=== PATIENT | male | born 1990 | race Caucasian/White ===

== ENCOUNTER 2020-10-25 09:48 | Emergency (ER) | payer OTHER, SELFPAY ==
[2020-10-25 09:55] VITALS: BP 147/78; PULSE 79; RESP 16; TEMP 36.8; O2SAT 99; BMI 42.4
--- NOTE | 2020-10-25 10:00 | ED.GIBLEED ---
HPI - GI Bleed General Chief complaint: Abdominal Pain Stated complaint: blood in stool Time Seen by Provider: 10/25/20 09:59 Source: patient Mode of arrival: ambulatory Limitations: no limitations History of Present Illness HPI Narrative: 30 yo male otherwise healthy no AC or NSAID use, no PPI of H2 priscilla use comes in with c/o intermittent for weeks 3 to 4 black stools a week, told to come to ED by doctor, father and brother have hx of ulcers, has not seen GI doctor in past, no dizziness, very mild epigastric discomfort, does not take pepto bismol complaint: melena Onset (ago): week(s) Pain Consistency: intermittent Severity: mild Relieving factors: none Exacerbating factors: none Associated symptoms: abdominal pain Treatments Prior to Arrival: none Related Data Home Medications Medication Instructions Recorded Confirmed clonidine HCl 0.1 mg tablet 0.1 mg PO QID PRN 08/05/20 08/07/20 risperidone 1 mg tablet 0.5 mg PO BEDTIME tab 08/07/20 08/07/20 Previous Rx's Medication Instructions Recorded sulfamethoxazole 800 1 tab PO BID 10 Days #20 tab 08/05/20 mg-trimethoprim 160 mg tablet omeprazole 20 mg PO BID 14 Days #28 cap 10/25/20 Allergies Allergy/AdvReac Type Severity Reaction Status Date / Time Penicillins [PENICILLINS] Allergy Unknown REACTION Verified 08/07/20 06:29 A CHILD Review of Systems Review of Systems: Constitutional : No Weight loss, No Fever, No Chills ENT/Mouth : No sore throat, No Rhinorrhea Eyes: No Swelling, No Redness Cardiovascular : No Chest Pain, No SOB, NoEdema Respiratory : No Cough, No Sputum, No Wheezing Gastrointestinal : no Nausea, no Vomiting, no Diarrhea, positive abdominal Pain, No Hematochezia, pos Melena Genitourinary : No Dysuria, No Urinary Frequency, No Hematuria, No Urgency Musculoskeletal : No joint pain, No Myalgias, No Joint Swelling Skin : No Skin Lesions, No rash Neuro : No Weakness, No Numbness, No Dizziness, No Headache Psych : No Anxiety/Panic, No Depression Heme/Lymph: No Bruising, No Lymphadenopathy Endocrine : No Polyuria, No Polydipsia All other systems reviewed and are negative. [facility] Past Medical History Attestation statement: The following information was validated with the patient. Medical History Anxiety Depression Surgical History No significant past surgical history Family History Family History Father Hypertension Hypercholesterolemia Crohn's disease Mother Anemia Leukemia Brother Crohn's disease Maternal Grandmother Breast cancer Paternal Uncle Pancreatic cancer Social History Social History Alcohol intake: never Smoking Status: Former smoker Tobacco Type: Cigarette Advance Directives: No Advance Directives Information Provided: No Physical Exam Vital Signs: Vital Signs: Last Vital Signs Temp 98.2 F 10/25/20 09:55 Pulse 79 10/25/20 09:55 Resp 16 10/25/20 09:55 BP 147/78 H 10/25/20 09:55 Pulse Ox 99 10/25/20 09:55 Body Mass Index 42.4 Appearance: Alert. Oriented X3. No acute distress. Eyes: Pupils equal, round and reactive to light. ENT: Pharynx normal. Neck: Normal inspection. Neck supple. CVS: Normal heart rate and rhythm. Pulses normal. Respiratory: No respiratory distress. Breath sounds normal. Abdomen: Soft and non-tender. Rectal: brown stool nonthrombosed non bleeding ext hemorroids Skin: Skin warm and dry. Normal skin color. Normal skin turgor. Extremities: No lower extremity edema. No calf ttp Neuro: Oriented X 3. No motor deficit. No sensory deficit. Course Course Course Narrative: VS and lab work stable MDM - GI Bleed MDM Narrative Medical decision making narrative: 30 yo male no AC therapy, no NSAIDs here with a few weeks of intermittent dark stools - family hx of ulcers, denies endoscopy, no OTC antacids or pepto bismol, no dizziness/CP/SOB - abdomen is benign at this time suspect PUD - will start on PPI BID and refer to PCP and GI Discharge Plan Discharge Clinical Impression: Peptic ulcer disease GIB (gastrointestinal bleeding) Qualifiers: GI bleed type/associated pathology: melena Qualified Code(s): K92.1 - Melena Patient Disposition: Home, Self-Care Instructions: Peptic Ulcer (ED), Gastrointestinal Bleeding (ED) Additional Instructions: return to ED for any worsening symptoms or concerns NO ASPIRIN, MOTRIN, ALEVE, IBUPROFEN, NAPROSYN, NAPROXEN Prescriptions: New omeprazole 20 mg capsule,delayed release(DR/EC) 20 mg PO BID 14 Days Qty: 28 RF: 0 No Action clonidine HCl 0.1 mg tablet 0.1 mg PO QID PRN (Reason: anxiety) RF: 0 sulfamethoxazole-trimethoprim [Bactrim DS] 800-160 mg tablet 1 tab PO BID 10 Days Qty: 20 RF: 0 risperidone 1 mg tablet 0.5 mg PO BEDTIME RF: 0 Referrals: Robert Berumen MD [Primary Care Provider] - 2 days (GI referral) Stand Alone Forms: Work/School Release
[2020-10-25 10:17] LABS: MANUAL DIFF FLAG NO
[2020-10-25 10:19] LABS: Basophils Percent Auto 0.5 % (0-2); Eosinophils Absolute Auto 0.1 X10*3/uL (0.0-0.4); Eosinophils Percent Auto 1.4 % (0-4); Hematocrit 44.4 % (42-52); Hemoglobin 14.6 g/dl (14.0-18.0); Imm Gran Abs Auto 0.02 X10*3/uL (0.00-0.03); Imm Gran Pct Auto 0.3 % (0.0-0.4); Lymphocytes Absolute Auto 1.8 X10*3/uL (1.2-4.9); Lymphocytes Percent Auto 31.1 % (20-40); Mean Corpuscular HGB Conc 32.9 g/dl (31.0-36.0); Mean Corpuscular Hemoglobin 26.7 pg (27.0-33.0); Mean Corpuscular Volume 81.3 fL (80-98); Mean Platelet Volume 10.1 fL (9.4-12.4); Monocytes Absolute Auto 0.3 X10*3/uL (0.1-1.2); Monocytes Percent Auto 5.8 % (2-11); Neutrophils Absolute Auto 3.6 X10*3/uL (2.0-8.3); Neutrophils Percent Auto 60.9 % (45-73); Platelet Count 233 X10*3/uL (160-400); Red Blood Count 5.46 X10*6/uL (4.60-5.80); Red Cell Distribution Width 12.4 % (11.0-16.0); White Blood Count 5.9 X10*3/uL (4.8-10.8)
[2020-10-25 10:24] LABS: OBS Int Ctl Valid YES; OBS1 NEGATIVE (NEGATIVE)
[2020-10-25 10:28] LABS: Prothrombin Time 11.9 SEC (10.8-13.0)
[2020-10-25 10:31] LABS: Partial Thromboplastin Time 34.3 SEC (24.1-38.0)
[2020-10-25 10:42] LABS: Alanine Aminotransferase 79 U/L (0-40); Albumin Level 4.6 g/dL (3.5-5.0); Alkaline Phosphatase 44 U/L (39-117); Anion Gap 14 (12-20); Aspartate Amino Transferase 40 U/L (5-37); Bilirubin Direct 0.2 mg/dL (0.0-0.5); Bilirubin Total 0.4 mg/dL (0.0-1.0); Blood Urea Nitrogen 16 mg/dL (9-16); Calcium 9.7 mg/dL (8.4-10.2); Carbon Dioxide 26 mmol/L (22-29); Chloride 105 mmol/L (96-108); Estimated Glomerular Filt Rate > 60; Glucose Random 99 mg/dL (60-115); Lipase 21 U/L (8-78); Potassium 4.1 mmol/L (3.3-5.1); Sodium 141 mmol/L (135-145); Total Protein 7.6 g/dL (6.5-8.0)
== END 2020-10-25 11:06 | disposition home or self-care (01) ==
PROVIDERS: Emergency Provider Emergency Medicine; PCP Internal Medicine
DX: K92.1 Melena (principal); F17.210 Nicotine dependence, cigarettes, uncomplicated
CPT/HCPCS: 36415; 80048; 80076; 82272; 83690; 83735; 85025; 85610; 85730; 99283

== ENCOUNTER 2020-12-09 08:19 | Outpatient (REF) | payer OTHER, SELFPAY ==
[2020-12-09 11:47] LABS: C Reactive Protein 0.42 mg/dL (< or = 0.50)
[2020-12-12 03:31] LABS: HIV AB/AG Nonreactive (Nonreactive); HIV Num 1 0.08 S/CO (0.00-0.99)
[2020-12-12 15:52] LABS: Mitochondrial Antibodies NEGATIVE (NEGATIVE)
[2020-12-13 21:47] LABS: Ceruloplasmin 25 mg/dL (18-36)
[2020-12-14 22:26] LABS: Smooth Muscle Antibody <20 U (<20)
== END 2020-12-09 08:20 | disposition home or self-care (01) ==
LOC: HO.LAB 08:19
PROVIDERS: PCP Internal Medicine; Referring Provider Internal Medicine; Visit Provider Nurse Practitioner Family
DX: R79.89 Other specified abnormal findings of blood chemistry (principal); K21.9 Gastro-esophageal reflux disease without esophagitis; K92.1 Melena; K64.9 Unspecified hemorrhoids; Z83.79 Family history of other diseases of the digestive system; Z11.0 Encounter for screening for intestinal infectious diseases
CPT/HCPCS: 36415; 82390; 86140; 86255; 86256; 87338; 87389

== ENCOUNTER 2020-12-27 13:26 | Outpatient (REF) | payer OTHER, SELFPAY ==
[2020-12-27 14:41] LABS: Hematocrit 42.5 % (42-52); Hemoglobin 13.9 g/dl (14.0-18.0); Mean Corpuscular HGB Conc 32.7 g/dl (31.0-36.0); Mean Corpuscular Hemoglobin 26.2 pg (27.0-33.0); Mean Corpuscular Volume 80.2 fL (80-98); Mean Platelet Volume 10.1 fL (9.4-12.4); Platelet Count 238 X10*3/uL (160-400); Red Cell Distribution Width 12.8 % (11.0-16.0); White Blood Count 5.8 X10*3/uL (4.8-10.8)
[2020-12-28 08:31] LABS: HBS Num1 > 1000.00 mIU/mL (0-7.99); HBc Num1 0.12 S/CO (0.00-0.79); HBsAGNum1 0.21 S/CO (0.00-0.99); Hepatitis A Antibody IgM 0.25 Index (0-0.79); Hepatitis B Core Antibody Nonreactive (Nonreactive); Hepatitis B Surface Antigen Negative (Negative); ~Hepatitis A Antibody IgM Nonreactive (Nonreactive); ~Hepatitis B Surface Antibody REACTIVE (Nonreactive)
[2020-12-28 08:43] LABS: ~HepC Num1 0.06 S/CO (0.00-0.79); ~Hepatitis C Antibody Nonreactive (Nonreactive)
[2020-12-28 13:17] LABS: Alpha Fetoprotein 1.5 ng/mL (<6.1)
[2020-12-29 12:26] LABS: HIV AB/AG Nonreactive (Nonreactive); HIV Num 1 0.07 S/CO (0.00-0.99)
[2020-12-29 15:17] LABS: Mitochondrial Antibodies NEGATIVE (NEGATIVE)
[2020-12-30 23:47] LABS: Smooth Muscle Antibody <20 U (<20)
== END 2020-12-27 13:27 | disposition home or self-care (01) ==
LOC: HO.LAB 13:26
PROVIDERS: PCP Internal Medicine; Referring Provider Internal Medicine; Visit Provider Nurse Practitioner Family
DX: Z01.84 Encounter for antibody response examination (principal); Z11.59 Encounter for screening for other viral diseases; Z11.4 Encounter for screening for human immunodeficiency virus [HIV]; K62.5 Hemorrhage of anus and rectum; R10.9 Unspecified abdominal pain; R79.89 Other specified abnormal findings of blood chemistry; K21.9 Gastro-esophageal reflux disease without esophagitis; K59.00 Constipation, unspecified
CPT/HCPCS: 36415; 82105; 85027; 86255; 86256; 86704; 86706; 86709; 86803; 87340; 87389

== ENCOUNTER 2021-01-19 07:52 | Outpatient (REF) | payer OTHER, SELFPAY ==
--- NOTE | ~2021-01-19 | US_ITS ---
EXAMINATION: US COMPLETE ABDOMEN WITH LIVER ELASTOGRAPHY CLINICAL INFORMATION: Abnormal levels of other serum enzymes. COMPARISON: None TECHNIQUE: Real-time imaging of the abdominal viscera. Noninvasive ultrasound liver fibrosis assessment is performed using Jose ElastPQ point quantification shear wave elastography (pSWE) with a C5-2 MHz transducer. Multiple elastography samples are obtained. FINDINGS: PANCREAS: The visualized portions of the pancreas are unremarkable but a large portion of the gland is obscured by bowel gas. ABDOMINAL AORTA: The proximal, middle, and distal aortic segments are normal in caliber. INFERIOR VENA CAVA: Visualized portions are normal. LIVER: The liver is enlarged and demonstrates increased echogenicity consistent with hepatic steatosis. No focal lesion or intrahepatic biliary duct dilatation. The right lobe measures 18 cm in length. The left lobe measures 11.7 cm in length. Portal flow is hepatopedal. Shear wave liver elastography median stiffness is 1.76 m/s (reference: normal median stiffness is 1.3 m/s or less). IQR/median stiffness to assess sampling precision is 0.10 (reference: good quality data set is IQR/median stiffness of 0.15 or less). GALLBLADDER: Normal. The gallbladder is physiologically distended without evidence of stones, sludge, polyps, wall thickening or pericholecystic fluid. COMMON BILE DUCT: Normal in caliber measuring 0.3 cm in diameter. RIGHT KIDNEY: Normal. No hydronephrosis. No renal calculi or focal parenchymal lesions. The kidney measures 10.4 cm in maximum dimension. LEFT KIDNEY: . No hydronephrosis. No renal calculi or focal parenchymal lesions. The kidney measures 12.7 cm in maximum dimension. SPLEEN: Normal. The spleen measures 10.7 cm in maximum dimension. FREE FLUID: None. US/US abdomen comp w elastography IMPRESSION: 1. Enlarged echogenic liver consistent with hepatic steatosis/liver parenchymal disease. 2. Liver elastography: Liver Stiffness 1.7-2.1 m/s: Suggestive of compensated advanced chronic liver disease but need further test for confirmation. REFERENCE: Society of Radiologists in Ultrasound Liver Stiffness Thresholds (2020): LIVER STIFFNESS THRESHOLDS: *Liver Stiffness equal or less than 1.3 m/s: High probability of being normal. *Liver Stiffness less than 1.7 m/s: In the absence of other known clinical signs, rules out compensated advanced chronic liver disease. *Liver Stiffness 1.7-2.1 m/s: Suggestive of compensated advanced chronic liver disease but need further test for confirmation. *Liver Stiffness over 2.1 m/s: Rules in compensated advanced chronic liver disease. *Liver Stiffness over 2.4 m/s: Suggestive of clinically significant portal hypertension. QUALITY OF DATA SET: *IQR/Median value equal or less than 0.15 implies a quality data set. *IQR/Median value over 0.15 implies a poor quality data set. SIGNIFICANT CHANGE FROM PRIOR EXAM: Significant change if liver stiffness measurement is 10% or greater from prior exam. OTHER CONSIDERATIONS: The stage of liver fibrosis may be overestimated in the setting of acute hepatitis, liver inflammation, elevated liver function tests, hepatic vascular congestion, obstructive cholestasis, non-fasting state, and infiltrative diseases such as amyloidosis and lymphoma. In some patients with NAFLD, the liver stiffness thresholds for compensated advanced chronic liver disease may be lower. In causes other than viral hepatitis and NAFLD, liver stiffness thresholds are not well established.
== END 2021-01-19 07:53 | disposition home or self-care (01) ==
LOC: HO.US 07:52
PROVIDERS: PCP Internal Medicine; Visit Provider Nurse Practitioner Family
DX: R79.89 Other specified abnormal findings of blood chemistry (principal)
CPT/HCPCS: 76705; 76981

== ENCOUNTER → 2021-02-14 13:03 | Outpatient (BNVA) | payer OTHER, SELFPAY | PROVIDERS: PCP Internal Medicine; Referring Provider Internal Medicine; Visit Provider Nurse Practitioner Family ==

== ENCOUNTER → 2021-03-20 09:04 | Outpatient (BNVA) | payer OTHER, SELFPAY | PROVIDERS: PCP Internal Medicine; Referring Provider Nurse Practitioner Family; Visit Provider Surgery | DX: K64.9 Unspecified hemorrhoids (principal); E66.01 Morbid (severe) obesity due to excess calories | CPT/HCPCS: 46600 ==

== ENCOUNTER 2021-04-07 07:26 | Day surgery (SDC) | payer OTHER, SELFPAY ==
[2021-03-31 15:31] VITALS: BMI 42.5
--- NOTE | 2021-04-06 16:37 | HO.ANESPROP2 ---
HPI - Anesthesia Eval Consult details Narrative: 30 yo male patient for EUA, Hemorrhoidectomy PMFSH Active Problems Active Problems: All Active Problems (Updated 03/31/21 @ 15:35 by Magui Streeter RN) Abdominal pain (Acute) Pharyngitis (Acute) Morbid obesity (Acute) Bleeding hemorrhoids (Acute) Obesity (Acute) Depression (Acute) Snoring. Never had sleep study Past Medical History Medical History Anxiety Bleeding hemorrhoids COVID-19 vaccine series completed Depression Morbid obesity Obesity Family History Family History Father Hypertension Hypercholesterolemia Crohn's disease Mother Anemia Leukemia Brother Crohn's disease Maternal Grandmother Breast cancer Paternal Uncle Pancreatic cancer Family history of problems with anesthesia: No Surgical History Surgical History H/O wisdom tooth extraction No significant past surgical history History of Problems with Anesthesia: No Social History Social History Housing: Apartment Are you a primary geriatric personal care aide to a significant other at home: No Do you presently have visiting nurse or other home services: No Alcohol intake: never Patient Tobacco Use Status: Never used Tobacco e-Cigarette/Vaping Use: Never Used Second Hand Smoke Exposure: No Use of substances other than those prescribed or required for medical reasons: No Have you been hit, kicked, punched, or otherwise hurt by someone within the past year? If so, by whom?: No Are you DNR?: No Advance Directives: No Advance Directives Information Provided: No Advance Directives on File: No Recently lost weight without trying: No Eating poorly because of decreased appetite: No Nutrition Risks: No Nutritional Risk Poor oral hygiene: No service: No Current occupational status: employed Meds Allergies Allergy/AdvReac Type Severity Reaction Status Date / Time Penicillins [PENICILLINS] Allergy Unknown REACTION Verified 03/31/21 15:26 A CHILD Home Medications Medication Instructions Recorded Confirmed Last Taken Type clonidine HCl 0.1 mg tablet 0.1 mg PO QID PRN 08/05/20 03/31/21 Unknown History risperidone 1 mg tablet 0.5 mg PO BEDTIME tab 08/07/20 03/31/21 Unknown History Exam Exam Date and Time: April 06, 2021 1637 Height,Weight and Vital Signs: Height 5 ft 7 in Weight 123.377 kg Vital Signs Temp Pulse Resp BP Pulse Ox 04/07/21 07:37 98.2 F 67 18 123/75 98 Airway Mallampati Class: II TM Dist: >3cm Neck ROM: Full Loose/Missing/Broken Teeth: Yes (Extraction) Heart: RRR Lungs: CTAB Assessment and Plan Assessment Anesthesia Assessment: Anesthesia Plan Discussed and Chart Reviewed Final Anesthetic Review Family History of Problems with Anesthesia: No History of Problems with Anesthesia: No NPO: Yes ASA Class: III Final Preanesthetic Review: No Changes in Pt Med Stat, Meds/Allgs Chart Reviewed, Consent Obtained/Reviewed and Anes Risks/Benef Reviewed Patient Risk: Intermediate Procedure Risk: Low Assessment/Block/Sedation in SS: Assess/Block/Sedation-SS Anesthetic Plan Anesthetic Plan: GA Disposition: Standard PACU
[2021-04-07] VITALS (11 sets, daily range): BP systolic 123–169; BP diastolic 66–96; PULSE 63–78; RESP 17–20; TEMP 36.3–36.8; O2SAT 96–99
[2021-04-07] MEDS: Lactated Ringers 1,000 ML 100 ML IVCONT (08:00)
--- NOTE | 2021-04-07 09:17 | MHC.SHP ---
Pre-Procedural Eval Section A Date of Service: 04/07/21 Section B Chief Complaint: Bleeding hemorrhoids Allergies: Allergies Allergy/AdvReac Type Severity Reaction Status Date / Time Penicillins [PENICILLINS] Allergy Unknown REACTION Verified 03/31/21 15:26 A CHILD Plan I have reviewed the history and physical and performed a pertinent physical examination on my patient. No changes have occurred unless specified.
--- NOTE | 2021-04-07 10:32 | W.PM.OPN ---
Operative Note Operative Note Date of Service: 04/07/21 Narrative: Preop diagnosis: Bleeding internal and external hemorrhoids Postop diagnosis: the same Procedure: Exam under anesthesia, hemorrhoidectomy x2 columns Surgeon: Elkin Steel MD Wind Operations Supervisor: nicole Hurtado student The patient is a 30-year-old male with periodic passage of bright blood per rectum along with discomfort from his hemorrhoids. He had bulky hemorrhoidal column seen in the office. He wanted to proceed with hemorrhoidectomy. He understood the technique of the procedure as well as the risks, benefits, and alternatives Was brought to the operating room placed in prone cristobal-knife position under general anesthesia via endotracheal tube. The buttocks were retracted with wide tape laterally. The perianal area was prepped and draped in the the usual sterile fashion. A surgical time-out was done. The patient received Cefotan 2 g IV preoperatively Examination of the anal orifice revealed a bulky hemorrhoidal column the right anterior area, mostly external. I inserted the Allyson Mcmahon retractor and examined the anal canal circumferentially. Again this hemorrhoidal column on the right anterior was noted and appeared to be a mix of both internal and external component. There was another hemorrhoidal column the left it appeared very prominent as well I infiltrated the perianal area with lidocaine 1%. I applied a Smith grasper on the hemorrhoidal column on the right side to retract this into the field. I applied a gazzbc-ga-xgaro chromic 3-0 stitch at its pedicle proximal to the dentate line. I then made an incision around this hemorrhoidal column to the perianal skin using blade 15. I excised this hemorrhoidal column above the plane of sphincters using scissors all the way to the pedicle. I closed the incision running chromic 3-0 stitch. Additional ioyiqy-lg-adqgf hemostatic sutures were placed. We then proceeded to apply a Smith grasper at the hemorrhoidal column on the left. I made a gzmsrj-vb-gljxt stitch at the pedicle using chromic 3-0. I made an incision around this hemorrhoidal column to the perianal skin using a blade 15. I excised the hemorrhoid column above the plane of sphincters using scissors. I closed the incision with a running chromic 3-0 stitch. Additional zanquf-fx-mijla sutures were placed Once hemostasis was ensured, I proceeded then position a rolled Gelfoam packing into the anal canal for additional hemostasis. I infiltrated the perianal area with Marcaine 0.5% for postop analgesia. The procedure was then completed. The patient tolerated the procedure well. There were no complications noted. Initial fine counts of sponges and instruments were correct. Estimated blood loss was about 20cc. The patient was extubated without difficulty and transferred to the recovery room with stable vital signs.
--- NOTE | 2021-04-07 10:37 | P.BOP_ITS ---
Brief Operative Note Date of Service: 04/07/21 Pre-op diagnosis: Bleeding hemorrhoids Post-op diagnosis: same Procedure: Exam under anesthesia, hemorrhoidectomy Surgeon: Elkin Steel MD Anesthesia: GETA Was an Locomotive Firer/Fireman used for this Procedure?: No Estimated blood loss (mL): 20 Pathology: other (Hemorrhoids) Condition: stable Disposition: PACU
[2021-04-07] MEDS: fentaNYL citrate/PF 100 MCG/2 ML VIAL 25 MCG IVPUSH ×2 (10:49→11:07)
[2021-04-07] MEDS: Acetaminophen 325 MG TABLET 975 MG PO (10:50)
[2021-04-07] MEDS: oxyCODONE HCl Immed Release 5 MG TABLET 10 MG PO (10:50)
== END 2021-04-07 12:15 | disposition home or self-care (01) ==
PROVIDERS: PCP Internal Medicine; Visit Provider Surgery
PROC: (CPT 46260; principal; 2021-04-07 09:10)
DX: K64.8 Other hemorrhoids (principal); K64.4 Residual hemorrhoidal skin tags; K62.5 Hemorrhage of anus and rectum; E66.01 Morbid (severe) obesity due to excess calories; Z68.41 Body mass index [BMI] 40.0-44.9, adult; F32.9 Major depressive disorder, single episode, unspecified; Z88.0 Allergy status to penicillin; Z79.899 Other long term (current) drug therapy
CPT/HCPCS: 46260; 88304; J1100; J1885; J2250; J2405; J3010

== ENCOUNTER → 2021-04-20 09:57 | Outpatient (BNVA) | payer OTHER, MEDICAID, SELFPAY | PROVIDERS: PCP Internal Medicine; Visit Provider Surgery ==

== ENCOUNTER → 2021-05-04 15:58 | Outpatient (BNVA) | payer OTHER, SELFPAY | PROVIDERS: PCP Internal Medicine; Referring Provider Internal Medicine; Visit Provider Surgery ==

== ENCOUNTER 2023-12-26 09:31 | Emergency (ER) | payer SELFPAY ==
[2023-12-26 09:40] VITALS: BP 142/89; PULSE 55; RESP 19; TEMP 36.6; O2SAT 98; BMI 34.5
[2023-12-26 09:51] LABS: MANUAL DIFF FLAG NO
[2023-12-26 09:59] LABS: Basophils Percent Auto 0.3 % (0-2); Hematocrit 45.5 % (42.0-52.0); Hemoglobin 15.6 g/dl (14.0-18.0); Imm Gran Abs Auto 0.02 X10*3/uL (0.00-0.03); Imm Gran Pct Auto 0.3 % (0.0-0.4); Lymphocytes Absolute Auto 0.9 X10*3/uL (1.2-4.9); Lymphocytes Percent Auto 13.5 % (20-40); Mean Corpuscular HGB Conc 34.3 g/dl (31.0-36.0); Mean Corpuscular Hemoglobin 27.3 pg (27.0-33.0); Mean Corpuscular Volume 79.7 fL (80.0-98.0); Mean Platelet Volume 9.8 fL (9.4-12.4); Monocytes Absolute Auto 0.2 X10*3/uL (0.1-1.2); Monocytes Percent Auto 2.3 % (2-11); Neutrophils Absolute Auto 5.8 x10*3/uL (2.0-8.3); Neutrophils Percent Auto 83.6 % (45-73); Platelet Count 233 X10*3/uL (160-400); Red Blood Count 5.71 X10*6/uL (4.60-5.80); Red Cell Distribution Width 12.7 % (11.0-16.0); White Blood Count 6.9 X10*3/uL (4.8-10.8)
[2023-12-26 10:17] LABS: Alanine Aminotransferase 37 U/L (0-40); Albumin Level 5.1 g/dL (3.5-5.0); Alkaline Phosphatase 50 U/L (39-117); Anion Gap 14 (12-20); Aspartate Amino Transferase 28 U/L (5-37); Bilirubin Direct 0.4 mg/dL (0.0-0.5); Bilirubin Total 0.7 mg/dL (0.0-1.0); Blood Urea Nitrogen 12 mg/dL (9-16); Calcium 9.6 mg/dL (8.4-10.2); Carbon Dioxide 25 mmol/L (22-29); Chloride 108 mmol/L (96-108); Creatinine Clr Calc Pharmacy 140.9; Estimated Glomerular Filt Rate > 60; Glucose Random 123 mg/dL (60-115); Lipase 13 U/L (8-78); Potassium 4.1 mmol/L (3.3-5.1); Sodium 143 mmol/L (135-145); Total Protein 8.5 g/dL (6.5-8.0)
[2023-12-26 10:38] LABS: Influenza A PCR NEGATIVE (Negative); Influenza B PCR NEGATIVE (Negative); Resp Syncy Virus RNA Qual PCR NEGATIVE (Negative); SARS COV2 PCR INHOUSE NEGATIVE (Negative)
[2023-12-26 11:53] VITALS: BP 142/80; PULSE 53; RESP 17; O2SAT 99
--- NOTE | 2023-12-26 12:26 | ED_ITS ---
HPI - Abdominal Pain General Chief Complaint: Abdominal Pain Stated Complaint: vomiting abd pain Time Seen by Provider: 12/26/23 12:04 Source: patient Mode of arrival: ambulatory Limitations: no limitations History of Present Illness ED Provider: ADAM HPI narrative: 33 yo male with PMH of depression, anxiety here with c/o epigastric pain n/v increased acid over the past few weeks not on medications. no travel, sick contacts, food exposures. Has not seen GI or been scoped. No GIB symptoms MD elicited complaint: abdominal pain Pertinent past history: none Onset (ago): day(s) (today) Pain Consistency: intermittent Location: epigastric Severity: moderate Quality: aching Radiation: none Migration to: no migration Exacerbating factors: eating Relieving factors: nothing Context: history of similar episodes Associated symptoms: nausea and vomiting Related Data Home Medications ?Medication ?Instructions ?Recorded ?Confirmed clonidine HCl 0.1 mg tablet 0.1 mg PO QID PRN anxiety 08/05/20 05/04/21 risperidone 1 mg tablet 0.5 mg PO BEDTIME 08/07/20 05/04/21 Previous Rx's ?Medication ?Instructions ?Recorded docusate sodium 100 mg capsule 100 mg PO BEDTIME #30 caps 12/09/20 sennosides 8.6 mg tablet (Natural 8.6 mg PO BEDTIME PRN constipation 12/27/20 Senna Laxative) #30 tabs hydrocortisone 2.5 % topical cream 1 appl [place] BID-QID PRN hemorrhoids 02/14/21 with perineal applicator #30 grams (Anusol-HC) methylcellulose (laxative) 500 mg 500 mg PO DAILY #30 tabs 02/14/21 tablet (Citrucel) omeprazole 20 mg capsule,delayed 20 mg PO DAILY #30 caps 02/14/21 release docusate sodium 100 mg capsule 100 mg PO BID #60 caps 04/07/21 (Colace) ibuprofen 600 mg tablet 600 mg PO Q6H PRN pain #30 tabs 04/07/21 oxycodone-acetaminophen 5 mg-325 1 tab PO Q4-6H PRN pain #30 tabs 04/07/21 mg tablet (Percocet) omeprazole 40 mg capsule,delayed 40 mg PO DAILY #30 caps 12/26/23 release ondansetron 4 mg disintegrating 4 mg PO Q8H PRN nausea and 12/26/23 tablet vomiting #20 tabs Allergies Allergy/AdvReac Type Severity Reaction Status Date / Time Penicillins [PENICILLINS] Allergy Unknown REACTION Verified 12/26/23 09:41 A CHILD Review of Systems Review of Systems Constitutional : No Weight loss, No Fever, No Chills ENT/Mouth : No sore throat, No Rhinorrhea Eyes: No Swelling, No Redness Cardiovascular : No Chest Pain, No SOB, NoEdema Respiratory : No Cough, No Sputum, No Wheezing Gastrointestinal : Positive Nausea, Positive Vomiting, positive Diarrhea, positive abdominal Pain, No Hematochezia, No Melena Genitourinary : No Dysuria, No Urinary Frequency, No Hematuria, No Urgency Musculoskeletal : No joint pain, No Myalgias, No Joint Swelling Skin : No Skin Lesions, No rash Neuro : No Weakness, No Numbness, No Dizziness, No Headache Psych : No Anxiety/Panic, No Depression Heme/Lymph: No Bruising, No Lymphadenopathy Endocrine : No Polyuria, No Polydipsia All other systems reviewed and are negative. COUNT INCLUDES THE [facility] Past Medical History Attestation statement: The following information was validated with the patient. Source: old records reviewed Medical History COVID-19 vaccine series completed Morbid obesity Bleeding hemorrhoids Obesity Depression Anxiety Surgical History H/O wisdom tooth extraction History of hemorrhoidectomy No significant past surgical history Family History Family History Father Hypertension Hypercholesterolemia Crohn's disease Mother Anemia Leukemia Brother Crohn's disease Maternal Grandmother Breast cancer Paternal Uncle Pancreatic cancer Social History Social History Housing: Apartment Are you a primary childcare center director to a significant other at home: No Do you presently have visiting nurse or other home services: No Alcohol intake: never Patient Tobacco Use Status: Never used Tobacco e-Cigarette/Vaping Use: Never Used Second Hand Smoke Exposure: No Advance Directives: No Advance Directives Information Provided: Yes service: No Current occupational status: employed Physical Exam ED Vital Signs: Vital Signs - 24 hr 12/26/23 09:40 12/26/23 11:53 Temperature 98 F Pulse Rate 55 53 Respiratory Rate 19 17 Blood Pressure 142/89 H 142/80 H Pulse Oximetry 98 99 Oxygen Delivery Method Room Air Room Air BMI result Body Mass Index 34.5 Appearance: Alert. Oriented X3. No acute distress. Eyes: Pupils equal, round and reactive to light. ENT: Pharynx normal. Neck: Normal inspection. Neck supple. CVS: Normal heart rate and rhythm. Pulses normal. Respiratory: No respiratory distress. Breath sounds normal. Abdomen: Soft and mild epigastric ttp no rebound or guarding Skin: Skin warm and dry. Normal skin color. Normal skin turgor. Extremities: No lower extremity edema. No calf ttp Neuro: Oriented X 3. No motor deficit. No sensory deficit. Medical Decision Making Medical Decision Making MDM Narrative: 33 yo male with PMH of depression, anxiety here with c/o epigastric pain, heartburn, n/v at this time exam is benign neg shipman's sign not toxic, labs reassuring will start on PPI, nausea medications, discussed H pylori testing through PCP. suspect gastritis and GERD. Differential Diagnosis Differential Diagnoses: The differential diagnosis associated with the presentation includes gastritis, GERD, viral syndrome Admission/Observation Consideration of admission/observation: Escalation of care including admission/observation considered labs, reassuring, tolerating PO stable for DC Lab Data [facility] Lab Attestation statement: I reviewed the patient's lab results. 12/26/23 09:48 12/26/23 09:48 Labs: Lab Results 12/26/23 Range/Units 09:48 WBC 6.9 (4.8-10.8) X10*3/uL RBC 5.71 (4.60-5.80) X10*6/uL Hgb 15.6 (14.0-18.0) g/dl Hct 45.5 (42.0-52.0) % MCV 79.7 L (80.0-98.0) fL MCH 27.3 (27.0-33.0) pg MCHC 34.3 (31.0-36.0) g/dl RDW 12.7 (11.0-16.0) % Plt Count 233 (160-400) X10*3/uL MPV 9.8 (9.4-12.4) fL Immature Gran % (Auto) 0.3 (0.0-0.4) % Neut % (Auto) 83.6 H (45-73) % Lymph % (Auto) 13.5 L (20-40) % [place] % (Auto) 2.3 (2-11) % Eos % (Auto) 0.0 (0-4) % Baso % (Auto) 0.3 (0-2) % Lymph # (Auto) 0.9 L (1.2-4.9) X10*3/uL [place] # (Auto) 0.2 (0.1-1.2) X10*3/uL Eos # (Auto) 0.0 (0.0-0.4) X10*3/uL Baso # (Auto) 0.0 (0.0-0.2) X10*3/uL Abs Immat Gran (auto) 0.02 (0.00-0.03) X10*3/uL Absolute Neuts (auto) 5.8 (2.0-8.3) x10*3/uL Absolute Nucleated RBC 0.000 (0.0-0.012) X10*3/uL Nucleated RBC % (auto) 0.0 (0.0-0.2) /100WBC Sodium 143 (135-145) mmol/L Potassium 4.1 (3.3-5.1) mmol/L Chloride 108 (96-108) mmol/L Carbon Dioxide 25 (22-29) mmol/L Anion Gap 14 (12-20) BUN 12 (9-16) mg/dL Creatinine 0.84 (0.5-1.4) mg/dL Estim Creat Clear Calc 140.9 Estimated GFR > 60 Random Glucose 123 H (60-115) mg/dL Calcium 9.6 (8.4-10.2) mg/dL Total Bilirubin 0.7 (0.0-1.0) mg/dL Direct Bilirubin 0.4 (0.0-0.5) mg/dL AST 28 (5-37) U/L ALT 37 (0-40) U/L Alkaline Phosphatase 50 (39-117) U/L Total Protein 8.5 H (6.5-8.0) g/dL Albumin 5.1 H (3.5-5.0) g/dL Lipase 13 (8-78) U/L Influenza Type A (PCR) NEGATIVE (Negative) Influenza Type B (PCR) NEGATIVE (Negative) RSV RNA Qual (PCR) NEGATIVE (Negative) SARS-CoV-2 RNA (RT-PCR) NEGATIVE (Negative) Independent Historian Clinical information obtained from an independent historian. History obtained from or confirmed by: Spouse External Record Review External record reviewed: Office record Prescription Management I considered prescription management with: Other Medications Administered Generic Name Dose Route Start Last Admin Trade Name Freq PRN Reason Stop Dose Admin Sodium Chloride 1,000 mls @ 999 mls/hr 12/26/23 12:25 12/26/23 12:46 Ns IV 12/26/23 13:25 999 mls/hr .Q1H1M ONE Administration Discontinued Medications Generic Name Dose Route Start Last Admin Trade Name Freq PRN Reason Stop Dose Admin Ondansetron HCl 4 mg 12/26/23 12:25 12/26/23 12:46 Ondansetron Hcl 4 Mg/2 Ml Vial IVPUSH 12/26/23 12:26 4 mg ONCE ONE Administration Pantoprazole Sodium 40 mg 12/26/23 12:25 12/26/23 12:46 Pantoprazole Sodium 40 Mg/10 Ml Vial IVPUSH 12/26/23 12:26 40 mg ONCE ONE Administration Discharge Plan Discharge Clinical Impression: Gastritis Qualifiers: Gastritis type: unspecified gastritis Chronicity: acute Gastritis bleeding: w ithout bleeding Qualified Code(s): K29.00 - Acute gastritis without bleeding GERD (gastroesophageal reflux disease) Qualifiers: Esophagitis presence: with esophagitis Esophagitis bleeding: without hemorrhage Qualified Code(s): K21.00 - Gastro-esophageal reflux disease with esophagitis, without bleeding Patient Disposition: Home, Self-Care Instructions: Gastritis (ED), Diet for Stomach Ulcers and Gastritis (ED), Gastroesophageal Reflux Disease (ED) Additional Instructions: tylenol is okay but no NSAIDs bland diet today and plenty of fluids stay upright for 1 hour after eating follow up with doctor for h pylori testing return for worsening symptoms or concerns. take omeprazole for 2 weeks then can try to come off if feeling better Prescriptions: New ondansetron 4 mg tablet,disintegrating 4 mg PO Q8H PRN (Reason: nausea and vomiting) Qty: 20 0RF omeprazole 40 mg capsule,delayed release(DR/EC) 40 mg PO DAILY Qty: 30 0RF No Action oxycodone-acetaminophen [Percocet] 5-325 mg tablet 1 tab PO Q4-6H PRN (Reason: pain) Qty: 30 0RF docusate sodium [Colace] 100 mg capsule 100 mg PO BID Qty: 60 2RF ibuprofen 600 mg tablet 600 mg PO Q6H PRN (Reason: pain) Qty: 30 0RF clonidine HCl 0.1 mg tablet 0.1 mg PO QID PRN (Reason: anxiety) risperidone 1 mg tablet 0.5 mg PO BEDTIME docusate sodium 100 mg capsule 100 mg PO BEDTIME Qty: 30 3RF Citrucel 500 mg tablet 500 mg PO DAILY Qty: 30 2RF Rx Instructions: take it with full glass of water hydrocortisone [Anusol-HC] 2.5 % cream with perineal applicator 1 appl NE BID-QID PRN (Reason: hemorrhoids) Qty: 30 0RF omeprazole 20 mg capsule,delayed release(DR/EC) 20 mg PO DAILY Qty: 30 3RF sennosides [Natural Senna Laxative] 8.6 mg tablet 8.6 mg PO BEDTIME PRN (Reason: constipation) Qty: 30 1RF Print Language: Thai
[2023-12-26] MEDS: ondansetron HCL 4 MG/2 ML VIAL IVPUSH (12:46)
[2023-12-26] MEDS: Pantoprazole Sodium 40 MG/10 ML VIAL IVPUSH (12:46)
[2023-12-26] MEDS: 0.9 % Sodium Chloride 1,000 ML 999 ML IV (12:46)
--- NOTE | 2023-12-26 13:02 | PC.NURSE ---
a&ox4. vss and up to date. pt presents to the ED w/ upper abd pain/n/v x 0400 this am. pt verbalizes pain woke him up and he was unable to tolerate anything PO. 20gIV placed in the right AC - IVF/medication administered per provider order. effectiveness pending. no sob/wob noted. respirations even/unlabored. partner bedside for support. plan of care ongoing. call celaya placed within reach.
[2023-12-26 13:34] VITALS: BP 130/67; PULSE 64; RESP 16; TEMP 36.8; O2SAT 99
[2023-12-26 13:40] VITALS: BP 130/67; PULSE 64; RESP 16; TEMP 36.8; O2SAT 99
== END 2023-12-26 13:40 | disposition home or self-care (01) ==
PROVIDERS: Emergency Provider Emergency Medicine; PCP Internal Medicine
DX: K29.00 Acute gastritis without bleeding (principal); K21.00 Gastro-esophageal reflux disease with esophagitis, without bleeding; R10.13 Epigastric pain; R11.2 Nausea with vomiting, unspecified; Z03.818 Encounter for observation for suspected exposure to other biological agents ruled out
CPT/HCPCS: 0241U; 80048; 80076; 83690; 85025; 96374; 96375; 99284; C9113; J2405

== ENCOUNTER 2025-06-10 23:02 | Emergency (ER) | payer BC, SELFPAY ==
--- NOTE | ~2025-06-10 | XR_ITS ---
CLINICAL HISTORY: Left sided rib pain 4 view, chest and left ribs Comparison: None provided Findings: No fractures or dislocations. The visualized lungs are normal. IMPRESSION: 1. No acute fractures. This document has been electronically signed by: Eric Castillo MD, PHD on 06/11/2025 00:22:42
[2025-06-10 23:04] VITALS: BP 142/90; PULSE 65; O2SAT 95
[2025-06-10 23:18] VITALS: BP 112/54; PULSE 69; RESP 16; TEMP 36.9; O2SAT 98; BMI 34.5
--- NOTE | 2025-06-11 00:57 | ED.GENADULT ---
HPI - General Adult General Chief complaint: General Medical Stated complaint: RIB PAIN Time Seen by Provider: 06/11/25 00:40 History of Present Illness ED Provider: Saira Rajput NP HPI narrative: 74-year-old male medical history significant for bleeding hemorrhoids, obesity, depression presenting to the ED for evaluation of left-sided rib pain ongoing for about a week. Patient reports that a week ago he was at work and was lifting heavy wrenches and heard a pop in the left side. The pain has progressively worsened over the course of 1 week. It worsens with sitting, twisting and pulling. He feels as though with movement the pain is worse severe, but is able to breathe normally at home. He is able to take full deep breaths. Denies any substernal chest pain or pressure. No shortness of breath. No coughing. No abdominal pain, nausea or vomiting, urinary complaints. No fever, chills. No direct trauma, injury to the side of the ribs or chest. Related Data Home Medications ?Medication ?Instructions ?Recorded ?Confirmed clonidine HCl 0.1 mg tablet 0.1 mg PO QID PRN anxiety 08/05/20 05/04/21 risperidone 1 mg tablet 0.5 mg PO BEDTIME 08/07/20 05/04/21 Previous Rx's ?Medication ?Instructions ?Recorded docusate sodium 100 mg capsule 100 mg PO BEDTIME #30 caps 12/09/20 sennosides 8.6 mg tablet (Natural 8.6 mg PO BEDTIME PRN constipation 12/27/20 Senna Laxative) #30 tabs hydrocortisone 2.5 % topical cream 1 appl [place] BID-QID PRN hemorrhoids 02/14/21 with perineal applicator #30 grams (Anusol-HC) methylcellulose (laxative) 500 mg 500 mg PO DAILY #30 tabs 02/14/21 tablet (Citrucel) omeprazole 20 mg capsule,delayed 20 mg PO DAILY #30 caps 02/14/21 release docusate sodium 100 mg capsule 100 mg PO BID #60 caps 04/07/21 (Colace) ibuprofen 600 mg tablet 600 mg PO Q6H PRN pain #30 tabs 04/07/21 oxycodone-acetaminophen 5 mg-325 1 tab PO Q4-6H PRN pain #30 tabs 04/07/21 mg tablet (Percocet) omeprazole 40 mg capsule,delayed 40 mg PO DAILY #30 caps 12/26/23 release ondansetron 4 mg disintegrating 4 mg PO Q8H PRN nausea and 12/26/23 tablet vomiting #20 tabs lidocaine 5 % topical patch 1 patch topical DAILY 7 days #15 ea 06/11/25 (Lidoderm) Allergies Allergy/AdvReac Type Severity Reaction Status Date / Time Penicillins (PENICILLINS) Allergy Unknown REACTION Verified 06/10/25 23:23 A CHILD Review of Systems Review of Systems: ROS is otherwise negative unless mentioned in HPI. [facility] Past Medical History Medical History COVID-19 vaccine series completed Morbid obesity Bleeding hemorrhoids Obesity Depression Anxiety Surgical History H/O wisdom tooth extraction History of hemorrhoidectomy No significant past surgical history Family History Family History Father Hypertension Hypercholesterolemia Crohn's disease Mother Anemia Leukemia Brother Crohn's disease Maternal Grandmother Breast cancer Paternal Uncle Pancreatic cancer Social History Social History Housing: Apartment Are you a primary healthcare project manager to a significant other at home: No Do you presently have visiting nurse or other home services: No Alcohol intake: never Patient Tobacco Use Status: Never used Tobacco e-Cigarette/Vaping Use: Never Used Second Hand Smoke Exposure: No Advance Directives: No Advance Directives Information Provided: Yes service: No Current occupational status: employed Physical Exam ED Exam Exam: Nursing notes and vital signs reviewed. Constitutional: Well-appearing, NAD. Alert. Oriented X3. Eyes: EOMI. ENT: Pharynx normal. Neck: Normal inspection. Neck supple. Thorax: Nontender to palpation of the anterior or posterior ribs on either side. CVS: Normal heart rate and rhythm. Pulses normal. Respiratory: No respiratory distress. Breath sounds normal. Abdomen: Soft and nontender, nondistended. Skin: Skin warm and dry. Normal skin color. Extremities: No lower extremity edema. Neuro: Oriented X 3. No motor deficit. Vital Signs: Vital Signs - 24 hr 06/10/25 23:18 06/11/25 01:09 Temperature 98.4 F 98.4 F Pulse Rate 69 69 Respiratory Rate 16 16 Blood Pressure 112/54 L 112/54 L Pulse Oximetry 98 98 Oxygen Delivery Method Room Air Room Air BMI result Body Mass Index 34.5 Medications Administered Discontinued Medications Generic Name Dose Route Start Last Admin Trade Name Maurice PRN Reason Stop Dose Admin Acetaminophen 975 mg 06/11/25 00:56 06/11/25 01:03 Acetaminophen 325 Mg Tablet PO 06/11/25 00:57 975 mg ONCE ONE Administration Ibuprofen 600 mg 06/11/25 00:56 06/11/25 01:03 Ibuprofen 600 Mg Tablet PO 06/11/25 00:57 600 mg ONCE ONE Administration Lidocaine 1 patch 06/11/25 00:56 06/11/25 01:04 Lidocaine 4 % Patch Adh..Patch TRANSDERMA 06/11/25 00:57 1 patch ONCE ONE Administration Protocol Medical Decision Making Medical Decision Making MDM Narrative: 12:58 AM 06/11/2025 (Saira Rajput, YUMIKO): On my initial assessment of this patient, he is resting comfortably, answering all questions appropriately. No hypoxia, and tachycardia. Lungs CTA. There is no tenderness to palpation of the anterior/ posterior ribs on either side. X-ray was ordered from triage which reveals no acute abnormality. Specifically no acute rib fractures. In the ED he was given a Lidoderm patch, Tylenol, ibuprofen with good effect. I offered him a work note but he declined. We discussed this may be a rib contusion, but more likely it is musculoskeletal pain given the pain is worse upon moving. He is agreeable to follow up with primary care outpatient. He was given return precautions to the ED if symptoms worsen resume not improve over the next 1-2 days. He is agreeable. Differential Diagnosis Differential Diagnoses: The differential diagnosis associated with the presentation includes Rib contusion, fracture, dislocation, pneumothorax Admission/Observation Consideration of admission/observation: Escalation of care including admission/observation considered (Not indicated) Radiology Impression Discussion of test interpretation with radiology: I have reviewed the radiologist's reading. Radiologist Impression: IMPRESSION: 1. No acute fractures. Independent Historian None External Record Review External record reviewed: Other (Prior ED visits) Social Determinants Patient?s care significantly limited by Social Determinants of Health including: Problems related to primary support group and Problems related to employment Discharge Plan Discharge Clinical Impression: Rib pain on left side Patient Disposition: Home, Self-Care Instructions: Rib Contusion (ED) Additional Instructions: As we discussed, the x-rays show no evidence of any underlying fracture. In the ER we gave you Tylenol, ibuprofen, and Lidoderm patch. I have prescribed the Lidoderm patches to your pharmacy. Please use these medications as prescribed. Please engage and deep breathing exercises. With any worsening complaints at any time, return back to the ED for additional assessment. Prescriptions: New lidocaine [Lidoderm] 5 % adhesive patch,medicated 1 patch topical DAILY 7 Days Qty: 15 0RF Rx Instructions: leave on most painful area for up to 12 hrs No Action oxycodone-acetaminophen [Percocet] 5-325 mg tablet 1 tab PO Q4-6H PRN (Reason: pain) Qty: 30 0RF docusate sodium [Colace] 100 mg capsule 100 mg PO BID Qty: 60 2RF ibuprofen 600 mg tablet 600 mg PO Q6H PRN (Reason: pain) Qty: 30 0RF ondansetron 4 mg tablet,disintegrating 4 mg PO Q8H PRN (Reason: nausea and vomiting) Qty: 20 0RF omeprazole 40 mg capsule,delayed release(DR/EC) 40 mg PO DAILY Qty: 30 0RF clonidine HCl 0.1 mg tablet 0.1 mg PO QID PRN (Reason: anxiety) risperidone 1 mg tablet 0.5 mg PO BEDTIME docusate sodium 100 mg capsule 100 mg PO BEDTIME Qty: 30 3RF Citrucel 500 mg tablet 500 mg PO DAILY Qty: 30 2RF Rx Instructions: take it with full glass of water hydrocortisone [Anusol-HC] 2.5 % cream with perineal applicator 1 appl [place] BID-QID PRN (Reason: hemorrhoids) Qty: 30 0RF omeprazole 20 mg capsule,delayed release(DR/EC) 20 mg PO DAILY Qty: 30 3RF sennosides [Natural Senna Laxative] 8.6 mg tablet 8.6 mg PO BEDTIME PRN (Reason: constipation) Qty: 30 1RF Referrals: [facility] Family Medicine [Provider Group, Family Practice] Interventions: ED Discharge Assessment Last Done: 06/11/25 01:09 Discharge Date/Time: 06/11/25 01:10 Print Language: Tamazight
[2025-06-11] MEDS: Lidocaine 4 % Patch ADH..PATCH 1 PATCH TRANSDERMA (01:04)
[2025-06-11 01:09] VITALS: BP 112/54; PULSE 69; RESP 16; TEMP 36.9; O2SAT 98
== END 2025-06-11 01:10 | disposition home or self-care (01) ==
PROVIDERS: Emergency Provider Emergency Medicine
DX: Z04.2 Encounter for examination and observation following work accident (principal); R07.89 Other chest pain
CPT/HCPCS: 71101; 99283

== ENCOUNTER → 2025-06-10 23:31 | Outpatient (BNV) | payer BC, SELFPAY | PROVIDERS: Emergency Provider Emergency Medicine; Visit Provider General Practice | DX: R07.89 Other chest pain (principal) | CPT/HCPCS: 71101 ==